=== PATIENT | female | born 1960 | race Caucasian/White ===

== ENCOUNTER 2019-01-01 16:05 | Inpatient (IN) | payer MEDICARE, OTHER ==
[~2019-01-01] VITALS: Ht 170.2 cm; Wt 96.3 kg
[2019-01-01] MEDS ORDERED: ASPIRIN 81 MG TABLET CHEW PO ONE (16:30)
--- NOTE | 2019-01-01 16:44 | NUR ---
TO ROOM FROM LOBBY. NAD.
[2019-01-01 16:47] LABS: BASOPHILS # (AUTO) 0.11 x10^3/uL (0-0.1); BASOPHILS % (AUTO) 1 % (0-1); EOSINOPHILS # (AUTO) 0.16 x10^3/uL (0-0.4); EOSINOPHILS % (AUTO) 2 % (1-7); LYMPHOCYTES # (AUTO) 2.54 x10^3/uL (1-3.4); LYMPHOCYTES % (AUTO) 29 % (22-44); MD NO; MEAN CORPUSCULAR HEMOGLOBIN 31.7 pg (27.0-34.8); MEAN CORPUSCULAR HGB CONC 34.7 g/dL (32.4-35.8); MEAN CORPUSCULAR VOLUME 91.3 fL (80-100); MEAN PLATELET VOLUME 8.2 fL (7.4-10.4); MONOCYTES # (AUTO) 0.48 x10^3/uL (0.2-0.8); MONOCYTES % (AUTO) 6 % (2-9); NEUTROPHILS % (AUTO) 63 % (42-75); PLATELET COUNT 328 x10^3/uL (130-400); RED BLOOD COUNT 4.75 x10^6/uL (3.82-5.3); RED CELL DISTRIBUTION WIDTH 12.6 % (9.6-15.2)
[2019-01-01 16:58] LABS: ALANINE AMINOTRANSFERASE 42 U/L (12-78); ALBUMIN 3.8 g/dL (3.4-5.0); ANION GAP 5 mmol/L (5-15); CALCIUM 8.9 mg/dL (8.5-10.1); CHLORIDE 111 mmol/L (98-107); CREATININE 0.77 mg/dL (0.55-1.02)
[2019-01-01] MEDS ORDERED: ASPIRIN 81 MG TABLET CHEW ONE (16:58)
--- NOTE | 2019-01-01 17:00 | NUR ---
PT PRESENTS TO ED WITH CP X1MO, HAS HX CABG AND SEES ICE CREAM DIPPER, HAD APPT BUT FEELS IT IS WORSENING AND "THEY CAN'T FIGURE OUT WHAT TO DO WITH ME" SO CAME TO ED. PT TOOK NITRO AND XANAX LAST NIGHT WITH NO RELIEF. FEELS CRUSHING AND STABBING CP INTERMITTENTLY MORE AT REST. PT PLACED ON MONITOR, VSS, NAD. CALL LIGHT WITH PT. ALL LABS AND XRAYS DONE, ASA GIVEN
[2019-01-01 17:02] LABS: ALKALINE PHOSPHATASE 142 U/L (45-117); BILIRUBIN,TOTAL 0.2 mg/dL (0.2-1.0); TOTAL PROTEIN 7.6 g/dL (6.4-8.2); TROPONIN I < 0.015 ng/mL (0.000-0.045)
--- NOTE | 2019-01-01 18:00 | NUR ---
MED REC UPDATED, PT RESTING IN [place], REQUESTING SOMETHING FOR PAIN OR ANXIETY. AT BEDSIDE. PT UPDATED ON POC. AWAITING ADMIT ORDERS
[2019-01-01] MEDS ORDERED: CHOL500022 PO (18:46)
[2019-01-01] MEDS ORDERED: SIMV20TA3 PO (18:46)
[2019-01-01] MEDS ORDERED: NITR0.4T SL (18:46)
[2019-01-01] MEDS ORDERED: POTA10CA PO (18:46)
[2019-01-01] MEDS ORDERED: ASPI-515 PO (18:46)
[2019-01-01] MEDS ORDERED: TRAM50TA2 PO (18:46)
[2019-01-01] MEDS ORDERED: FURO20TA3 PO (18:46)
[2019-01-01] MEDS ORDERED: PRAM0.5T5 PO (18:46)
[2019-01-01] MEDS ORDERED: SERT50TA28 PO (18:46)
[2019-01-01] MEDS ORDERED: ISOS30TA8 PO (18:46)
[2019-01-01] MEDS ORDERED: LORazepam 1MG TABLET PO ONE (19:00)
[2019-01-01] MEDS ORDERED: LORazepam 1MG TABLET ONE (19:12)
[2019-01-01] MEDS ORDERED: DIPHENHYDRAMINE 25 MG CAPSULE PO PRN (19:30)
[2019-01-01] MEDS ORDERED: ACETAMINOPHEN 325 MG TABLET PO PRN (19:30)
[2019-01-01] MEDS ORDERED: LIDODERM 5% PATCH TD PRN (19:30)
[2019-01-01] MEDS ORDERED: DOCUSATE 100 MG CAPSULE PO PRN (19:30)
[2019-01-01] MEDS ORDERED: GABAPENTIN 300 MG CAPSULE PO PRN (19:30)
[2019-01-01] MEDS ORDERED: ONDANSETRON ODT 4 MG PO PRN (19:30)
[2019-01-01] MEDS ORDERED: LABETALOL 5MG/ML, 20ML IVPush PRN (19:30)
[2019-01-01] MEDS ORDERED: NITROGLYCERIN 0.4 MG BOTTLE (25 TABS) SL PRN (19:30)
[2019-01-01 19:59] LABS: HEMOGLOBIN A1C 6.3 % (4.2-6.3)
[2019-01-01 20:21] VITALS: BP 94/63
[2019-01-01 20:34] VITALS: BP 91/55
[2019-01-01] MEDS: ENOXAPARIN 40 MG/0.4 ML SQ SCH (20:37)
[2019-01-01 23:03] LABS: TROPONIN I < 0.015 ng/mL (0.000-0.045)
[2019-01-02 00:49] VITALS: BP 109/73
[2019-01-02] MEDS: KETOROLAC 30 MG/1 ML IV PRN ×2 (02:12→18:25)
[2019-01-02] MEDS: PRAMIPEXOLE 0.5MG TABLET PO SCH ×4 (03:02→23:35)
[2019-01-02 05:51] LABS: BASOPHILS # (AUTO) 0.05 x10^3/uL (0-0.1); BASOPHILS % (AUTO) 1 % (0-1); EOSINOPHILS # (AUTO) 0.12 x10^3/uL (0-0.4); EOSINOPHILS % (AUTO) 2 % (1-7); LYMPHOCYTES % (AUTO) 35 % (22-44); MD NO; MEAN CORPUSCULAR HEMOGLOBIN 31.9 pg (27.0-34.8); MEAN CORPUSCULAR HGB CONC 34.9 g/dL (32.4-35.8); MEAN CORPUSCULAR VOLUME 91.6 fL (80-100); MEAN PLATELET VOLUME 8.5 fL (7.4-10.4); MONOCYTES # (AUTO) 0.31 x10^3/uL (0.2-0.8); MONOCYTES % (AUTO) 5 % (2-9); NEUTROPHILS # (AUTO) 3.46 x10^3/uL (1.8-6.8); NEUTROPHILS % (AUTO) 57 % (42-75); PLATELET COUNT 272 x10^3/uL (130-400); RED BLOOD COUNT 4.33 x10^6/uL (3.82-5.3); RED CELL DISTRIBUTION WIDTH 12.3 % (9.6-15.2)
[2019-01-02 05:59] LABS: ANION GAP 4 mmol/L (5-15); CALCIUM 8.5 mg/dL (8.5-10.1); CHLORIDE 110 mmol/L (98-107); CHOLESTEROL, TOTAL 192 mg/dL (140-239); CREATININE 0.68 mg/dL (0.55-1.02); TRIGLYCERIDES 134 mg/dL (50-200); VLDL CHOLESTEROL 27 mg/dL (0-25)
[2019-01-02 06:02] LABS: CHOL/HDL RATIO 3.1; HDL CHOL % 32 % (28-40); HDL CHOLESTEROL (DIRECT) 62 mg/dL (40-60); LDL CHOLESTEROL,CALCULATED 103 mg/dL (54-169); LDL/HDL RATIO 1.7 (0.5-3.0); TROPONIN I < 0.015 ng/mL (0.000-0.045)
[2019-01-02 07:22] VITALS: BP 109/74
[2019-01-02] MEDS ORDERED: ISOSORBIDE MONONITRATE ER 30 MG TABLET PO SCH (09:00)
[2019-01-02] MEDS: DILTIAZEM 120 MG CAP.ER.24H PO SCH (11:08)
[2019-01-02] MEDS: LORazepam 1MG TABLET PO PRN (11:13)
[2019-01-02 12:35] VITALS: BP 124/79
[2019-01-02] MEDS ORDERED: DILT120C9 PO (15:10)
[2019-01-02] MEDS ORDERED: LIDO700A20 TD (15:14)
[2019-01-02] MEDS ORDERED: LIDODERM 5% PATCH TD SCH (15:30)
[2019-01-02 18:19] VITALS: BP 121/83
[2019-01-02 19:52] VITALS: BP 96/64
[2019-01-02] MEDS ORDERED: SIMVASTATIN 20 MG TABLET PO SCH (21:00)
[2019-01-02] MEDS: ENOXAPARIN 40 MG/0.4 ML SQ SCH (23:35)
[2019-01-03] MEDS: KETOROLAC 30 MG/1 ML IV PRN (00:36)
[2019-01-03 01:06] VITALS: BP 90/59
[2019-01-03 07:39] VITALS: BP 127/83
[2019-01-03] MEDS ORDERED: PRAMIPEXOLE 0.25MG TABLET ONE (09:35)
[2019-01-03] MEDS: DILTIAZEM 120 MG CAP.ER.24H PO SCH (09:45)
[2019-01-03] MEDS: PRAMIPEXOLE 0.5MG TABLET PO SCH (09:46)
[2019-01-03] MEDS: LORazepam 1MG TABLET PO PRN (10:52)
[2019-01-03] MEDS ORDERED: ATOR-2 PO (12:22)
== END 2019-01-03 14:28 | disposition home or self-care (01) | DRG 303 ==
LOC: ED 17:49 → EDIP 17:50 → ED 18:06 → 5SO 20:08
PROVIDERS: ADMIT Internal Medicine; ATTEND Internal Medicine
DX: I25.110 Atherosclerotic heart disease of native coronary artery with unstable angina pectoris (principal); E11.9 Type 2 diabetes mellitus without complications; E66.9 Obesity, unspecified; E78.5 Hyperlipidemia, unspecified; I25.10 Atherosclerotic heart disease of native coronary artery without angina pectoris; Z95.1 Presence of aortocoronary bypass graft; Z79.899 Other long term (current) drug therapy; Z82.3 Family history of stroke; Z87.891 Personal history of nicotine dependence; Z98.1 Arthrodesis status; Z98.84 Bariatric surgery status; Z68.33 Body mass index [BMI] 33.0-33.9, adult
CPT/HCPCS: 36415; 71046; 80048; 80053; 80061; 82962; 83036; 83690; 83880; 84443; 84484; 85025; 93005; 99285; G0378; J1650; J1885; Q0162